=== PATIENT | female | born 1965 | race Caucasian/White ===

== ENCOUNTER → 2019-08-18 | Outpatient (CLI) | payer OTHER ==
[~2019-08-18] MED LIST: HUMALOG100 U/ML SUBCUTANEO; LANTUS100 U/ML SUBCUTANEO
== END | disposition home or self-care (01) ==
LOC: MRI 10:59
PROVIDERS: ATTEND Orthopaedic Surgery
DX: M25.562 Pain in left knee (principal); M25.561 Pain in right knee
CPT/HCPCS: 73721

== ENCOUNTER 2019-10-19 09:27 | Outpatient (CLI) | payer OTHER | END 2019-10-19 09:43 | disposition home or self-care (01) | LOC: TOM 09:27 | DX: R91.1 Solitary pulmonary nodule (principal) ==

== ENCOUNTER 2020-02-17 10:50 | Outpatient (CLI) | payer OTHER | END 2020-02-17 11:18 | disposition home or self-care (01) | LOC: NUCLEAR 10:50 | PROVIDERS: ATTEND Internal Medicine Cardiovascular Disease | DX: R94.31 Abnormal electrocardiogram [ECG] [EKG] (principal) ==

== ENCOUNTER 2023-01-29 14:06 | Emergency (ER) | payer OTHER ==
[~2023-01-29] VITALS: Ht 162.6 cm; Wt 63.5 kg
[~2023-01-29 14:06] MED LIST changes: +EVISTA60 MG; +GLIMEPIRIDE2 M1; +JANUVIA50 MG; +SIMVASTATIN20 MG; +TOPROL XL25 M1
[2023-01-29 16:14] LABS: HEMATOCRIT 40.1 % (36.0-45.00); HEMOGLOBIN 13.5 g/dL (12.0-15.00); MEAN CELL VOLUME 87.2 fL (80.00-100.00); MEAN CORPUSCULAR HEMOGLOBIN 29.3 pg (27.00-32.0); MEAN CORPUSCULAR HGB CONC 33.6 g/dl (32.0-36.0); PLATELET COUNT 237 K/uL (150-450)
[2023-01-29 16:53] LABS: INR 0.97; PARTIAL THROMBOPLASTIN TIME 26.9 SECONDS (22.0-34.0); PROTHROMBIN TIME 10.2 SECONDS (9.0-11.5)
[2023-01-29 17:02] LABS: ALBUMIN 3.8 gm/dL (3.4-5.0); ALKALINE PHOSPHATASE 89 U/L (50-136); ALT/SGPT 22 U/L (12-78); ANION GAP 8 (10.0-20.0); AST/SGOT 18 U/L (15-37); BILIRUBIN TOTAL 0.62 mg/dL (0.3-1.2); BLOOD UREA NITROGEN 13 mg/dL (7-18); BUN CREA RATIO 20 (7.0-25.0); CALCIUM 9.5 mg/dL (8.5-10.1); CARBON DIOXIDE 30 mEq/L (21-32); CHLORIDE 109 mmol/L (98-107); CREATININE SERUM 0.66 mg/dL (0.55-1.02); GFR 92.31; GLOBULINA 4.3 G/DL (2.4-3.5); GLUCOSE FASTING 95 mg/dL (65-100); OSMOLALITY SERUM 285 MOSM/KG (275-295); POTASSIUM 4.11 mEq/L (3.5-5.1); SODIUM 143 mmol/L (136-145); TOTAL PROTEIN 8.1 gm/dL (6.4-8.2)
[2023-01-29 17:07] LABS: CKMB < 1.0 NG/ML (0.5-3.6)
== END 2023-01-29 20:22 | disposition home or self-care (01) ==
LOC: ER 14:06
PROVIDERS: Emergency Medicine
DX: E11.649 Type 2 diabetes mellitus with hypoglycemia without coma (principal); I10 Essential (primary) hypertension; Z79.4 Long term (current) use of insulin

== ENCOUNTER 2023-03-18 08:10 | Outpatient (CLI) | payer OTHER | END 2023-03-18 08:30 | disposition home or self-care (01) | LOC: SONOGRAMA 08:10 | PROVIDERS: ATTEND General Practice | DX: R30.0 Dysuria (principal); N39.9 Disorder of urinary system, unspecified; E11.8 Type 2 diabetes mellitus with unspecified complications; M54.50 Low back pain, unspecified; I10 Essential (primary) hypertension ==